=== PATIENT | female | born 1990 | race American Indian/Alaskan Native ===

== ENCOUNTER 2017-11-26 12:06 | Emergency (ER) | payer OTHER ==
[2017-11-26 13:09] LABS: Basophils % (Auto) 0.7 % (0.0-1.8); Eosinophils # (Auto) 0.1 K/mm3 (0.0-0.4); Eosinophils % (Auto) 1.6 % (0.0-4.3); Hematocrit 34.7 % (30.3-42.9); Hemoglobin 11.5 gm/dl (10.1-14.3); Lymphocytes # (Auto) 2.8 K/mm3 (1.2-5.4); Lymphocytes % (Auto) 47.4 % (13.4-35.0); Mean Corpuscular HGB Conc 33 % (30-34); Mean Corpuscular Hemoglobin 28 pg (28-32); Mean Corpuscular Volume 84 fl (79-97); Monocytes # (Auto) 0.4 K/mm3 (0.0-0.8); Monocytes % (Auto) 6.5 % (0.0-7.3); Platelet Count 241 K/mm3 (140-440); Red Blood Count 4.16 M/mm3 (3.65-5.03); Red Cell Distribution Width 15.9 % (13.2-15.2)
--- NOTE | 2017-11-26 14:35 | Ultrasound Report ---
ULTRASOUND OB LESS THAN 14 WEEKS FETUS ULTRASOUND OB TRANSVAGINAL HISTORY: Vaginal bleeding, abdominal pain. COMPARISON: None. TECHNIQUE: Transabdominal and transvaginal ultrasound with color doppler interrogation. FINDINGS: Uterus: The uterus is anteverted and measures 10 x 6 x 7 cm. Normal cervix. Endometrium: An intrauterine gestational sac containing a small yolk sac is identified. No pole is demonstrated at this time. No heart tones. Gestational sac diameter correlates with an 8 week 4 day . Right ovary: 2.4 x 1.8 x 2.0 cm. A 1.5 cm slightly complex cyst is identified in the right ovary. Left ovary: 2.9 x 1.8 x 1.3 cm. No focal abnormality. No pelvic fluid or mass is identified. Normal color doppler interrogation. IMPRESSION: An intrauterine gestational sac is identified but no evidence for pole or heart activity is demonstrated. This may represent a blighted ovum. Close interval followup is recommended.
[2017-11-26 14:46] LABS: Bilirubin,Urine NEG (Negative); Blood,Urine SM (Negative); Color,Urine Yellow (Yellow); Mucus,Urine 3+ /HPF; Protein,Urine <15 mg/dL mg/dL (Negative); Urobilinogen,Urine < 2.0 mg/dL (<2.0)
--- NOTE | 2017-11-26 16:39 | Emergency Department Report ---
ED HPI - General Chief complaint: Vaginal Bleeding Stated complaint: VAG BELLDING Time Seen by Provider: 11/26/17 15:40 Source: patient Mode of arrival: Ambulatory Limitations: No Limitations - History of Present Illness Initial comments: with history of one miscarriage several presents with 2 days of light spotting, intermittent abdominal cramping. Has had to use a pad for the amount of spotting. She saw an OB last week day was fine at that time. Patient has not had an ultrasound to confirm her dates yet. She is concerned that she could be having an . No urinary symptoms. - Related Data Allergies Allergy/AdvReac Type Severity Reaction Status Date / Time No Known Allergies Allergy Unverified 11/26/17 12:16 ED Review of Systems ROS: Stated complaint: VAG BELLDING Other details as noted in HPI Constitutional: denies: chills, fever Eyes: denies: eye pain, eye discharge, vision change ENT: denies: ear pain, throat pain Respiratory: denies: cough, shortness of breath, wheezing Cardiovascular: denies: chest pain, palpitations Endocrine: no symptoms reported Gastrointestinal: abdominal pain, nausea. denies: diarrhea Genitourinary: other (vaginal spotting). denies: urgency, dysuria, discharge Musculoskeletal: denies: back pain, joint swelling, arthralgia Skin: denies: rash, lesions Neurological: denies: headache, weakness, paresthesias Psychiatric: denies: anxiety, depression Hematological/Lymphatic: denies: easy bleeding, easy bruising ED Past Medical Hx - Past Medical History Previous Medical History?: No - Surgical History Past Surgical History?: No - Social History Smoking Status: Never Smoker Substance Use Type: None ED Physical Exam - General Limitations: No Limitations General appearance: alert, in no apparent distress - Head Head exam: Present: atraumatic, normocephalic - Eye Eye exam: Present: normal appearance - ENT ENT exam: Present: mucous membranes moist - Neck Neck exam: Present: normal inspection - Respiratory Respiratory exam: Present: normal lung sounds bilaterally. Absent: respiratory distress - Cardiovascular Cardiovascular Exam: Present: regular rate, normal rhythm. Absent: systolic murmur, diastolic murmur, rubs, gallop - GI/Abdominal GI/Abdominal exam: Present: soft, normal bowel sounds - Extremities Exam Extremities exam: Present: normal inspection - Back Exam Back exam: Present: normal inspection - Neurological Exam Neurological exam: Present: alert, oriented X3 - Psychiatric Psychiatric exam: Present: normal affect, normal mood - Skin Skin exam: Present: warm, dry, intact, normal color. Absent: rash ED Course Vital Signs 11/26/17 12:16 Temperature 98.7 F Pulse Rate 68 Respiratory 16 Rate Blood Pressure 157/98 O2 Sat by Pulse 100 Oximetry ED Medical Decision Making - Lab Data Result diagrams: 11/26/17 12:42 - Medical Decision Making 27-year-old approximately 10 weeks that presents to the ER with 2 days of vaginal spotting and intermittent abdominal cramping. Patient is well appearing. Vitals are stable. Abnormal exams unremarkable. Ultrasound shows gestational sac with yolk sac, but no pole or heart rate. This concern for a blighted ovum. Patient has had one of these in the past. She said that she'll follow up with her OB for a pelvic exam and for further management of this issue. I stressed to the patient that she needs to either return to the ER or to her OB for a repeat of her beta hCG in 48 hours to see if it is going up or going down. No indication for rhogam at this time. - Differential Diagnosis IUP, ectopic , threatened versus incomplete , UTI Critical care attestation.: If time is entered above; I have spent that time in minutes in the direct care of this critically ill patient, excluding procedure time. ED Disposition Clinical Impression: Threatened Disposition: [id number] TO HOME OR SELFCARE Is pt being admited?: No Does the pt Need Aspirin: No Condition: Stable Instructions: Threatened Miscarriage (ED) Additional Instructions: Please follow-up with your OB or the ER in 2 days for a repeat check of your hormone level. Today, it was 3500. Referrals: PRIMARY CARE, [Primary Care Provider] - 3-5 Days
[2017-11-26 16:50] VITALS: BP 182/120
== END 2017-11-26 16:50 | disposition home or self-care (01) ==
LOC: ED 12:06
DX: O20.0 Threatened abortion (principal); Z3A.08 8 weeks gestation of pregnancy
CPT/HCPCS: 36415; 76801; 76817; 81001; 84702; 85025; 86850; 86900; 86901